=== PATIENT | male | born 1940 | race Caucasian/White ===

== ENCOUNTER 2023-12-18 06:30 | Day surgery (SDC) | payer OTHER, SELFPAY ==
[2023-12-10 08:28] VITALS: BMI 23.2
[2023-12-10 08:55] LABS: Hematocrit 40.2 % (39.0-52.0); Hemoglobin 13.7 g/dL (13.0-18.0); Mean Corp Hgb Conc. 34.1 g/dL (33.0-37.0); Mean Corpuscular Hgb 32.9 pg (27.0-31.0); Mean Corpuscular Volume 96.6 fL (80.0-94.0); Mean Platelet Volume 8.9 fL (7.4-10.4); Platelet Count 194 10^3/uL (130-400); Red Blood Cell Count 4.16 10^6/uL (4.70-6.10); Red Cell Dist. Width 12.9 % (11.5-14.5); White Blood Cell Count 6.6 10^3/uL (4.8-10.8)
[2023-12-10 09:08] LABS: Blood Urea Nitrogen 32 mg/dl (9-20); Calcium 9.4 mg/dl (8.4-10.2); Carbon Dioxide 28 mmol/L (22-30); Chloride 108 mmol/L (98-107); Estimated Creatinine Clearance 36 ml/min; Glucose 94 mg/dl (70-99); Potassium 4.5 mmol/L (3.5-5.1); Sodium 139 mmol/L (135-145); eGFR 50.49
[2023-12-10 09:09] LABS: Urine Albumin Trace (Neg - Trace); Urine Bilirubin Negative (Negative); Urine Character Clear (Clear); Urine Color Yellow; Urine Glucose Negative (Negative); Urine Ketone Negative (Negative); Urine Leukocyte Negative (Negative); Urine Nitrite Negative (Negative); Urine Occult Blood Negative (Negative); Urine Urobilinogen Negative (Neg - 1+)
[2023-12-10 09:18] LABS: INR 0.98; PT 13.2 Sec (11.4-14.6)
[2023-12-18] VITALS (11 sets, daily range): BP systolic 119–158; BP diastolic 42–67; BMI 23.2
[2023-12-18] MEDS: NORMOSOL-R 1000 IV (13:20)
--- NOTE | 2023-12-18 14:57 | W.IMMPOSTOP ---
Surgical Immed Post Op Note
-
Primary Surgeon: Quinton
Pre-op Diagnosis:
1. BPH with LUTS
2. Incomplete bladder emptying
Post-op Diagnosis: Same
Procedure Performed: button vaporization TURP
Anesthesia Type: LMA
Specimen / Cultures: Prostate chips/None
Estimated Blood Loss: 3 cc
Drains: 22Fr 3-way Rain catheter (30 cc in balloon)
Complications: None
Operative Findings:
Large median lobe w/o significant intravesical component vaporized completely with widely patent prostatic urethral channel on final cysto.
Excellent hemostasis in no flow, low pressure state.
Spouse updated post-op via telephone on intraop findings and discharge plan.
--- NOTE | 2023-12-18 16:44 | PTCARENOTE ---
1625 Received pt from [facility]. Patient alert with some notable confusion, stated this is patient's baseline. CBI infusing, clear with some pink tinged noted. Patient's VSS, in no apparent distress, able to make needs known. Patient and
oriented to room and call johnson system. Full assessment complete.
[2023-12-18] MEDS: APRESOLINE 10 MG PO ×2 (18:03→22:10)
[2023-12-19 03:47] VITALS: BP 138/60
[2023-12-19 06:55] LABS: % Basophils 0.3 % (0-2); % Eosinophils 0.2 % (0-6); % Immature Granulocytes 0.4 % (0-0.5); % Lymphocytes 6.6 % (20.5-51.1); % Monocytes 4.6 % (1.7-9.3); % Neutrophils 87.9 % (42.2-75.2); Absolute Lymphocytes 0.7 10^3/uL (1.2-3.4); Absolute Monocytes 0.5 10^3/uL (0.1-0.6); Hematocrit 36.9 % (39.0-52.0); Hemoglobin 12.8 g/dL (13.0-18.0); Mean Corp Hgb Conc. 34.7 g/dL (33.0-37.0); Mean Corpuscular Hgb 32.8 pg (27.0-31.0); Mean Corpuscular Volume 94.6 fL (80.0-94.0); Mean Platelet Volume 8.5 fL (7.4-10.4); Nucleated Red Blood Cells % 0 % (-); Platelet Count 162 10^3/uL (130-400); Red Cell Dist. Width 12.5 % (11.5-14.5); White Blood Cell Count 10.3 10^3/uL (4.8-10.8)
--- NOTE | 2023-12-19 07:52 | W.PN.UPDATE ---
Update Note
Progress Note Update
pt s/p TURp
no events overnight
CBI off last 2 hrs- urine light pink
mendoza removed for TOV- likely discharge later today
[2023-12-19 07:59] LABS: Potassium 4.7 mmol/L (3.5-5.1)
[2023-12-19 08:00] LABS: Blood Urea Nitrogen 27 mg/dl (9-20); Calcium 8.7 mg/dl (8.4-10.2); Carbon Dioxide 25 mmol/L (22-30); Chloride 106 mmol/L (98-107); Estimated Creatinine Clearance 42 ml/min; Glucose 109 mg/dl (70-99); Sodium 134 mmol/L (135-145); eGFR > 60.00
[2023-12-19 08:25] VITALS: BP 130/57
[2023-12-19] MEDS: CARDIZEM CD 240 MG PO (09:22)
[2023-12-19] MEDS: COZAAR 100 MG PO (09:23)
[2023-12-19] MEDS: PROSCAR 5 MG PO (09:23)
[2023-12-19] MEDS: VITAMIN D3 (cholecalciferol) 2000 UNITS PO (09:23)
[2023-12-19] MEDS: VITAMIN B-12 1000 MCG PO (09:23)
[2023-12-19] MEDS: APRESOLINE 10 MG PO (09:23)
--- NOTE | 2023-12-19 13:57 | CM ---
Reviewed the chart notes and spoke with the patient and his spouse at the bedside. The patient resides with the spouse in a one story home with three steps to enter. The patient reports no DME/VN/SNF in the past. The patient's pharmacy of choice
is the [facility]. The patient is being discharged to home with no needs. Spouse will provide transportation. CM continues to be available to patient/family and is monitoring medical plan for needs at discharge.
Plan: Discharge to home today.
== END 2023-12-19 14:11 | disposition home or self-care (01) ==
LOC: SDS 06:30
PROVIDERS: ATTENDING PHYSICIAN Surgery; FAMILY PHYSICIAN Internal Medicine; OTHER PHYSICIAN Internal Medicine
DX: N40.1 Benign prostatic hyperplasia with lower urinary tract symptoms (principal); R33.8 Other retention of urine
CPT/HCPCS: 52601; 88305; 36415; 80048; 81003; 85025; 85027; 85610; 85730; 88344; 93005

== ENCOUNTER → 2024-01-12 08:00 | Outpatient (REF) | payer OTHER, SELFPAY ==
[2024-01-12 08:39] LABS: % Basophils 0.6 % (0-2); % Eosinophils 4.7 % (0-6); % Immature Granulocytes 0.5 % (0-0.5); % Lymphocytes 16.5 % (20.5-51.1); % Monocytes 7.5 % (1.7-9.3); % Neutrophils 70.2 % (42.2-75.2); Absolute Eosinophils 0.3 10^3/uL (0-0.7); Absolute Lymphocytes 1.1 10^3/uL (1.2-3.4); Absolute Monocytes 0.5 10^3/uL (0.1-0.6); Absolute Neutrophils 4.7 10^3/uL (1.4-6.5); Hematocrit 39.5 % (39.0-52.0); Hemoglobin 13.7 g/dL (13.0-18.0); Mean Corp Hgb Conc. 34.7 g/dL (33.0-37.0); Mean Corpuscular Hgb 33.1 pg (27.0-31.0); Mean Corpuscular Volume 95.4 fL (80.0-94.0); Mean Platelet Volume 8.4 fL (7.4-10.4); Nucleated Red Blood Cells % 0 % (-); Platelet Count 165 10^3/uL (130-400); Red Blood Cell Count 4.14 10^6/uL (4.70-6.10); Red Cell Dist. Width 12.8 % (11.5-14.5); White Blood Cell Count 6.7 10^3/uL (4.8-10.8)
[2024-01-12 09:01] LABS: Urine Protein 29 mg/dl (0-12)
[2024-01-12 09:20] LABS: ALT (SGPT) 18 U/L (0-50); AST (SGOT) 25 U/L (17-59); Albumin 4.1 g/dl (3.5-5.0); Alkaline Phosphatase 82 U/L (38-126); Blood Urea Nitrogen 37 mg/dl (9-20); Calcium 9.1 mg/dl (8.4-10.2); Carbon Dioxide 27 mmol/L (22-30); Chloride 105 mmol/L (98-107); Glucose 97 mg/dl (70-99); Phosphorus 3.4 mg/dl (2.5-4.5); Potassium 4.8 mmol/L (3.5-5.1); Sodium 137 mmol/L (135-145); Total Bilirubin 0.8 mg/dl (0.2-1.3); eGFR 50.49
[2024-01-12 09:52] LABS: TSH 1.15 uIU/ml (0.47-4.68)
[2024-01-12 10:13] LABS: Vitamin B12 937 pg/ml (239-931)
[2024-01-15 02:24] LABS: Albumin 4.13 g/dL (3.75-5.01); Alpha 1 Globulin 0.27 g/dL (0.19-0.46); Alpha 2 Globulin 0.81 g/dL (0.48-1.05); Free Kappa Light Chains,Quant 76.87 mg/L (3.30-19.40); Free Lambda Light Chains,Quant 15.19 mg/L (5.71-26.30); IgA 136 mg/dL (68-408); IgG 1279 mg/dL (768-1632); IgM 37 mg/dL (35-263); Immunofixation Electrophoresis IFE Done; Kappa/Lambda Fr Light Ratio 5.06 (0.26-1.65); Monoclonal Protein 0.93 g/dL (<=0.00)
== END ==
LOC: REG 08:00
PROVIDERS: ATTENDING PHYSICIAN Internal Medicine; FAMILY PHYSICIAN Internal Medicine Hematology & Oncology; REFERRING PHYSICIAN Psychiatry & Neurology Behavioral Neurology & Neuropsychiatry
DX: N18.31 Chronic kidney disease, stage 3a (principal); D47.2 Monoclonal gammopathy; G30.9 Alzheimer's disease, unspecified
CPT/HCPCS: 36415; 80053; 80069; 82232; 82570; 82607; 82784; 83521; 84155; 84156; 84165; 84443; 85025; 86334

== ENCOUNTER → 2024-08-18 08:14 | Outpatient (REF) | payer OTHER, SELFPAY ==
[2024-08-18 09:27] LABS: Albumin 4.1 g/dl (3.5-5.0); Blood Urea Nitrogen 28 mg/dl (9-20); Calcium 9.4 mg/dl (8.4-10.2); Carbon Dioxide 28 mmol/L (22-30); Chloride 103 mmol/L (98-107); Glucose 94 mg/dl (70-99); Phosphorus 3.2 mg/dl (2.5-4.5); Potassium 4.7 mmol/L (3.5-5.1); Sodium 141 mmol/L (135-145); eGFR 50.18
[2024-08-18 10:08] LABS: TSH Reflex To Free T4 1.08 uIU/ml (0.47-4.68)
[2024-08-18 10:45] LABS: Intact PTH 35.3 pg/ml (13.6-85.8)
== END ==
LOC: REG 08:14
PROVIDERS: ATTENDING PHYSICIAN Internal Medicine; FAMILY PHYSICIAN Physician Assistant
DX: N18.31 Chronic kidney disease, stage 3a (principal); I95.1 Orthostatic hypotension
CPT/HCPCS: 36415; 80069; 82533; 83970; 84443

== ENCOUNTER → 2024-09-06 14:40 | Outpatient (REF) | payer OTHER, SELFPAY | LOC: RCS 14:40 | PROVIDERS: ATTENDING PHYSICIAN Internal Medicine Cardiovascular Disease; FAMILY PHYSICIAN Internal Medicine | DX: I35.1 Nonrheumatic aortic (valve) insufficiency (principal); R42 Dizziness and giddiness; I36.1 Nonrheumatic tricuspid (valve) insufficiency | CPT/HCPCS: 93306 ==

== ENCOUNTER → 2025-02-01 07:31 | Outpatient (REF) | payer OTHER, SELFPAY ==
[2025-02-01 08:04] LABS: % Basophils 0.8 % (0-2); % Eosinophils 8.9 % (0-6); % Immature Granulocytes 0.3 % (0-0.5); % Lymphocytes 14.7 % (20.5-51.1); % Monocytes 6.7 % (1.7-9.3); % Neutrophils 68.6 % (42.2-75.2); Absolute Basophils 0.1 10^3/uL (0-0.2); Absolute Eosinophils 0.7 10^3/uL (0-0.7); Absolute Lymphocytes 1.1 10^3/uL (1.2-3.4); Absolute Monocytes 0.5 10^3/uL (0.1-0.6); Hematocrit 40.7 % (39.0-52.0); Hemoglobin 13.7 g/dL (13.0-18.0); Mean Corp Hgb Conc. 33.7 g/dL (33.0-37.0); Mean Corpuscular Hgb 32.3 pg (27.0-31.0); Mean Platelet Volume 8.7 fL (7.4-10.4); Nucleated Red Blood Cells % 0 % (-); Platelet Count 184 10^3/uL (130-400); Red Blood Cell Count 4.24 10^6/uL (4.70-6.10); Red Cell Dist. Width 13.7 % (11.5-14.5); White Blood Cell Count 7.3 10^3/uL (4.8-10.8)
[2025-02-01 09:14] LABS: ALT (SGPT) 22 U/L (0-50); AST (SGOT) 26 U/L (17-59); Albumin 4.6 g/dl (3.5-5.0); Alkaline Phosphatase 115 U/L (38-126); Blood Urea Nitrogen 38 mg/dl (9-20); Calcium 9.7 mg/dl (8.4-10.2); Carbon Dioxide 24 mmol/L (22-30); Chloride 105 mmol/L (98-107); Glucose 91 mg/dl (70-99); HDL Cholesterol 61 mg/dl; LDL Cholesterol, Calculated 115 mg/dl; Potassium 4.4 mmol/L (3.5-5.1); Sodium 139 mmol/L (135-145); Total Bilirubin 0.8 mg/dl (0.2-1.3); Total Cholesterol 192 mg/dl (50-199); Total Protein 7.5 g/dl (6.3-8.2); Triglyceride 80 mg/dl (10-149); Very Low Density Lipoprotein 16 mg/dl (0-30); eGFR 54.51
[2025-02-04 01:07] LABS: Albumin 4.15 g/dL (3.75-5.01); Alpha 2 Globulin 0.89 g/dL (0.48-1.05); Free Kappa Light Chains,Quant 72.65 mg/L (3.30-19.40); IgA 150 mg/dL (68-408); IgG 1392 mg/dL (768-1632); IgM 44 mg/dL (35-263); Immunofixation Electrophoresis IFE Done; Kappa/Lambda Fr Light Ratio 3.53 (0.26-1.65); Monoclonal Protein 0.91 g/dL (<=0.00); Total Protein-Electrophoresis 7.2 g/dL (6.3-8.2)
== END ==
LOC: REG 07:31
PROVIDERS: ATTENDING PHYSICIAN Internal Medicine Hematology & Oncology; FAMILY PHYSICIAN Internal Medicine
DX: R97.20 Elevated prostate specific antigen [PSA] (principal); N18.2 Chronic kidney disease, stage 2 (mild); I10 Essential (primary) hypertension; R79.89 Other specified abnormal findings of blood chemistry; D47.2 Monoclonal gammopathy; Z12.5 Encounter for screening for malignant neoplasm of prostate
CPT/HCPCS: 36415; 80053; 80061; 82784; 83521; 84155; 84165; 84443; 85025; 86334; G0103

== ENCOUNTER → 2025-08-10 08:19 | Outpatient (REF) | payer OTHER, SELFPAY ==
[2025-08-10 09:36] LABS: Hematocrit 42.7 % (39.0-52.0); Hemoglobin 14.2 g/dL (13.0-18.0); Mean Corp Hgb Conc. 33.3 g/dL (33.0-37.0); Mean Corpuscular Volume 96.6 fL (80.0-94.0); Nucleated Red Blood Cells % 0 % (-); Platelet Count 179 10^3/uL (130-400); Red Cell Dist. Width 13.3 % (11.5-14.5)
[2025-08-10 11:13] LABS: ALT (SGPT) 20 U/L (0-50); AST (SGOT) 24 U/L (17-59); Albumin 4.5 g/dl (3.5-5.0); Alkaline Phosphatase 93 U/L (38-126); Blood Urea Nitrogen 29 mg/dl (9-20); Calcium 9.5 mg/dl (8.4-10.2); Carbon Dioxide 27 mmol/L (22-30); Chloride 107 mmol/L (98-107); Glucose 86 mg/dl (70-99); Potassium 4.6 mmol/L (3.5-5.1); Sodium 141 mmol/L (135-145); Total Protein 7.5 g/dl (6.3-8.2); eGFR > 60.00
== END ==
LOC: REG 08:19
PROVIDERS: ATTENDING PHYSICIAN Internal Medicine Hematology & Oncology; FAMILY PHYSICIAN Internal Medicine; OTHER PHYSICIAN Internal Medicine
DX: D47.2 Monoclonal gammopathy (principal); N18.31 Chronic kidney disease, stage 3a
CPT/HCPCS: 36415; 80053; 82570; 82784; 83521; 84100; 84155; 84156; 84165; 85025; 86334